=== PATIENT | female | born 1995 | race Hispanic/Latino ===

== ENCOUNTER 2021-12-10 16:12 | Emergency (ER) | payer OTHER ==
[~2021-12-10] VITALS: Ht 162.6 cm; Wt 79.4 kg
[2021-12-10] MEDS ORDERED: IBUPROFEN 600 MG TAB PO STA (17:33)
[2021-12-10] MEDS ORDERED: PENICILLIN G BENZATHINE LA 1.2 MU TBX IM STA (17:33)
[2021-12-10] MEDS ORDERED: IBUPROFEN 600 MG TAB ONE (18:03)
[2021-12-10] MEDS ORDERED: PENICILLIN G BENZATHINE LA 1.2 MU TBX ONE (18:03)
== END 2021-12-10 18:16 | disposition home or self-care (01) ==
LOC: FSED 17:34
DX: J02.0 Streptococcal pharyngitis (principal); R51.9 Headache, unspecified; R53.81 Other malaise
CPT/HCPCS: 83518; 99283; J0561

== ENCOUNTER 2023-04-10 17:16 | Emergency (ER) | payer OTHER ==
[~2023-04-10] VITALS: Ht 162.6 cm; Wt 84.5 kg
[2023-04-10] MEDS ORDERED: PENICILLIN G BENZATHINE LA 1.2 MU TBX IM STA (18:09)
[2023-04-10] MEDS ORDERED: PENICILLIN G BENZATHINE LA 1.2 MU TBX ONE (18:14)
[2023-04-10 18:16] VITALS: O2SAT 100
== END 2023-04-10 18:31 | disposition home or self-care (01) ==
LOC: FSED 17:20
DX: R05.9 Cough, unspecified (principal); J02.0 Streptococcal pharyngitis; R07.0 Pain in throat
CPT/HCPCS: 81025; 83518; 87400; 99283; J0561

== ENCOUNTER 2023-05-15 03:16 | Emergency (ER) | payer OTHER ==
[~2023-05-15] VITALS: Ht 162.6 cm; Wt 84.4 kg
[2023-05-15] MEDS ORDERED: FAMOTIDINE 20 MG/2 ML VIAL IV STA (03:27)
[2023-05-15] MEDS ORDERED: ONDANSETRON HCL INJ 2MG/ML 2ML 2 MG/ML VIAL IV STA (03:27)
[2023-05-15] MEDS ORDERED: SODIUM CHLORIDE 0.9% 1000ML 1,000 ML IV ONE (03:30)
[2023-05-15] MEDS ORDERED: ONDANSETRON HCL INJ 2MG/ML 2ML 2 MG/ML VIAL ONE ×2 (03:31→03:40)
[2023-05-15] MEDS ORDERED: SODIUM CHLORIDE 0.9% 1000ML 1,000 ML ONE (03:31)
[2023-05-15] MEDS ORDERED: FAMOTIDINE 20 MG/2 ML VIAL IV ONE (03:31)
[2023-05-15 03:34] VITALS: O2SAT 100
[2023-05-15] MEDS ORDERED: POTASSIUM CHLORIDE 20 MEQ TAB CR PO STA (03:43)
[2023-05-15] MEDS ORDERED: ONDANSETRON HCL INJ 2MG/ML 2ML 2 MG/ML VIAL IV ONE (03:45)
[2023-05-15] MEDS ORDERED: ONDANSETRON ODT4 MG PO (04:02)
[2023-05-15] MEDS ORDERED: FAMOTIDINE20 MG PO (04:02)
[2023-05-15] MEDS ORDERED: PROMETHAZINE HCL (IM) 25 MG/ML VIAL IM ONE (04:28)
[2023-05-15] MEDS ORDERED: PROMETHAZINE 12.5MG/ NACL 0.9% 12.5 MG/50 ML BAG IV ONE (04:30)
[2023-05-15] MEDS ORDERED: POTASSIUM CHLORIDE 20 MEQ TAB CR PO ONE (04:36)
== END 2023-05-15 04:42 | disposition home or self-care (01) ==
LOC: FSED 03:28
DX: R11.2 Nausea with vomiting, unspecified (principal); A05.9 Bacterial foodborne intoxication, unspecified; E87.6 Hypokalemia
CPT/HCPCS: 80053; 81003; 81025; 85025; 99283; J2405; J2550; J7030

== ENCOUNTER 2024-07-31 08:27 | Emergency (ER) | payer OTHER ==
[~2024-07-31] VITALS: Ht 162.6 cm; Wt 77.7 kg
[~2024-07-31 08:27] MED LIST: FAMOTIDINE20 MG PO; ONDANSETRON ODT4 MG PO
[2024-07-31] MEDS ORDERED: IBUPROFEN200 MG PO (09:05)
[2024-07-31] MEDS ORDERED: TYLENOL325 MG PO (09:05)
[2024-07-31] MEDS ORDERED: AUGMENTIN 500-1 EACH PO (09:05)
[2024-07-31] MEDS ORDERED: LIDOCAINE HCL 1% LOCAL INJ 20 ML VIAL ONE (09:26)
[2024-07-31] MEDS: CEFTRIAXONE 1 GM VIAL IM ONE (09:30)
[2024-07-31] MEDS: IBUPROFEN 200 MG TAB PO ONE (09:30)
[2024-07-31] MEDS: ACETAMINOPHEN 325 MG TAB PO ONE (09:31)
[2024-07-31 09:56] VITALS: PULSE 90; RESP 16; TEMP 98.2; O2SAT 100
== END 2024-07-31 09:56 | disposition home or self-care (01) ==
LOC: FSED 08:36
DX: R51.9 Headache, unspecified (principal); R20.0 Anesthesia of skin; G57.21 Lesion of femoral nerve, right lower limb; K02.9 Dental caries, unspecified
CPT/HCPCS: 96372; 99283; J0696; J2001